=== PATIENT | male | born 1940 | race African-American/Black ===

== ENCOUNTER 2016-06-03 21:21 | Inpatient (IN) | payer OTHER ==
[~2016-06-03] VITALS: Ht 175.3 cm; Wt 101.3 kg
[~2016-06-03 21:21] MED LIST: COZAAR50 MG PO; DECADRON4 MG PO; HYDROCODON-ACE1 EAC7 PO; JANUMET XR 1001 EACH PO; LEVEMIR FL100 UNIT/1 SC; MULTIPLE VITAM1 EACH PO; NORVASC10 MG PO
[2016-06-03 23:13] LABS: BASOPHIL COUNT 0.1 K/uL (0-0.1); EOSINOPHIL (%) 0.9 % (0-5); EOSINOPHIL COUNT 0.1 K/uL (0-0.3); HEMATOCRIT 32.2 % (38.0-50.0); IMMATURE GRANULOCYTE (%) 1.8 % (0.0-0.7); IMMATURE GRANULOCYTE COUNT 1.7 K/uL; LYMPHOCYTE COUNT 2.7 K/uL (1.0-2.8); MCH 26.8 PG (29.0-34.0); MCHC 32.9 G/DL (30.0-36.0); MCV 81.3 FL (86-99); MEAN PLAT.VOLUME 9.7 uM^3 (9.0-12.4); MONOCYTE (%) 10.8 % (3-12); NEUTROPHIL (%) 57.1 % (45-76); NEUTROPHIL COUNT 5.2 K/uL (1.8-6.4); RBC DIS.WIDTH-SD 43.1 % (39-53); RED BLOOD COUNT 3.96 M/uL (4.00-5.50); WHITE BLOOD COUNT 9.2 K/uL (4.1-10.2)
[2016-06-03 23:15] LABS: PLATELET COUNT 361 K/uL (156-360)
[2016-06-03 23:23] LABS: CHLORIDE 106 mEq/L (99-109); POTASSIUM 4.2 mEq/L (3.7-5.4); SODIUM 140 mEq/L (136-147)
[2016-06-03 23:26] LABS: GLUCOSE 221 mg/dL (70-99)
[2016-06-03 23:27] LABS: ANION GAP 10 MEQ/L (2-14)
[2016-06-03 23:28] LABS: TOTAL BILIRUBIN 0.3 mg/dL (0.0-1.0)
[2016-06-03 23:29] LABS: ALKALINE PHOSPHATASE 72 IU/L (3-129); GFR ESTIMATE (CALCULATED) 55 mL/min/
[2016-06-03 23:31] LABS: UREA NITROGEN (BUN) 17 mg/dL (9-23)
[2016-06-04 08:23] VITALS: BP 153/70
[2016-06-04 11:30] VITALS: BP 127/66
[2016-06-04 11:39] LABS: POINT-OF-CARE METER ID UU14149397
[2016-06-04 12:28] LABS: Estimated Average Glucose 235 mg/dL (70-123); HEMOGLOBIN A1c (GLYCOHEMOGLOB) 9.8 % HGB (Below 5.7)
[2016-06-04 16:45] LABS: POINT-OF-CARE METER ID UU14149397
[2016-06-04 19:56] VITALS: BP 168/84
[2016-06-04 19:57] VITALS: BP 168/84
[2016-06-04 22:22] LABS: POINT-OF-CARE METER ID UU13113717
[2016-06-04 23:56] VITALS: BP 145/64
[2016-06-05 03:36] VITALS: BP 135/64
[2016-06-05 06:38] LABS: EOSINOPHIL (%) 0 % (0-5); HEMATOCRIT 32.1 % (38.0-50.0); IMMATURE GRANULOCYTE (%) 0.8 % (0.0-0.7); IMMATURE GRANULOCYTE COUNT 0.1 K/uL; LYMPHOCYTE COUNT 1.2 K/uL (1.0-2.8); MCH 26.1 PG (29.0-34.0); MCV 79.1 FL (86-99); MEAN PLAT.VOLUME 9.6 uM^3 (9.0-12.4); MONOCYTE (%) 4.1 % (3-12); MONOCYTE COUNT 0.5 K/uL (0-0.8); NEUTROPHIL (%) 85.9 % (45-76); PLATELET COUNT 351 K/uL (156-360); RBC DIS.WIDTH-CV 14.5 % (11.8-14.6); RBC DIS.WIDTH-SD 41.5 % (39-53); RED BLOOD COUNT 4.06 M/uL (4.00-5.50)
[2016-06-05 06:44] LABS: WHITE BLOOD COUNT 12.8 K/uL (4.1-10.2)
[2016-06-05 06:48] LABS: ALKALINE PHOSPHATASE 65 IU/L (3-129); ANION GAP 9 MEQ/L (2-14); CHLORIDE 103 MEQ/L (99-109); GFR ESTIMATE (CALCULATED) > 59 mL/min/; GLUCOSE 238 mg/dL (70-99); POTASSIUM 4.1 MEQ/L (3.7-5.4); SAMPLE HEMOLYSIS CHECK 0; SAMPLE ICTERIC CHECK 0; SAMPLE LIPEMIA CHECK 0; SODIUM 137 MEQ/L (136-147); TOTAL BILIRUBIN 0.3 MG/DL (0.0-1.0); UREA NITROGEN (BUN) 21 mg/dL (9-23)
[2016-06-05 06:49] LABS: ANION GAP 8 MEQ/L (2-14); CHLORIDE 104 MEQ/L (99-109); GFR ESTIMATE (CALCULATED) > 59 mL/min/; GLUCOSE 238 mg/dL (70-99); POTASSIUM 4.2 MEQ/L (3.7-5.4); SAMPLE HEMOLYSIS CHECK 0; SAMPLE ICTERIC CHECK 0; SAMPLE LIPEMIA CHECK 0; SODIUM 138 MEQ/L (136-147); UREA NITROGEN (BUN) 21 mg/dL (9-23)
[2016-06-05 07:12] LABS: POINT-OF-CARE METER ID UU13113717
[2016-06-05 08:04] VITALS: BP 175/85
[2016-06-05] MEDS ORDERED: ZOFRAN4 MG PO (10:53)
[2016-06-05] MEDS ORDERED: COMPAZINE10 MG PO (10:53)
[2016-06-05 11:37] VITALS: BP 160/82
[2016-06-05 12:01] LABS: POINT-OF-CARE METER ID UU14149397
== END 2016-06-05 12:40 | disposition home or self-care (01) | DRG 55 ==
LOC: EME 21:21 → 3EAST 06-04 03:00 → EDOF 06-04 03:00 → 3EAST 06-04 08:24
PROVIDERS: Emergency Medicine; Family Medicine; Hospitalist; Internal Medicine
DX: C71.3 Malignant neoplasm of parietal lobe (principal); N17.9 Acute kidney failure, unspecified; E11.9 Type 2 diabetes mellitus without complications; I10 Essential (primary) hypertension; E78.5 Hyperlipidemia, unspecified; D50.9 Iron deficiency anemia, unspecified; R60.0 Localized edema; Z79.4 Long term (current) use of insulin
CPT/HCPCS: 70450; 71010; 77300; 77301; 77338; 80048; 80053; 81003; 82948; 83036; 85025; 85027; 99281; 99285; G0008; J1100; J1815; J1953; J7050

== ENCOUNTER 2016-07-07 13:32 | Inpatient (IN) | payer OTHER ==
[2016-07-07] VITALS (9 sets, daily range): BP systolic 140–178; BP diastolic 64–91
[~2016-07-07] VITALS: Ht 177.8 cm; Wt 102.4 kg
[~2016-07-07 13:32] MED LIST changes: +COMPAZINE10 MG PO; +ZOFRAN4 MG PO
[2016-07-07 14:46] LABS: HEMATOCRIT 36.5 % (38.0-50.0); MCH 26.5 PG (29.0-34.0); MCHC 32.3 G/DL (30.0-36.0); MEAN PLAT.VOLUME 9.3 uM^3 (9.0-12.4); PLATELET COUNT 269 K/uL (156-360); RBC DIS.WIDTH-CV 16.9 % (11.8-14.6); RBC DIS.WIDTH-SD 49.5 % (39-53); RED BLOOD COUNT 4.45 M/uL (4.00-5.50); WHITE BLOOD COUNT 8.4 K/uL (4.1-10.2)
[2016-07-07 14:56] LABS: CHLORIDE 105 mEq/L (99-109); SODIUM 139 mEq/L (136-147)
[2016-07-07 14:58] LABS: GLUCOSE 96 mg/dL (70-99); POTASSIUM 3.7 mEq/L (3.7-5.4)
[2016-07-07 14:59] LABS: ANION GAP 8 MEQ/L (2-14)
[2016-07-07 15:00] LABS: TOTAL BILIRUBIN 0.6 mg/dL (0.0-1.0)
[2016-07-07 15:01] LABS: PROTHROMBIN TIME 10.6 (9.2-11.2); PTT 26.8 (25-32); SERUM ETHYL ALCOHOL < 10 mg/dL
[2016-07-07 15:02] LABS: ALKALINE PHOSPHATASE 59 IU/L (3-129); GFR ESTIMATE (CALCULATED) > 59 mL/min/
[2016-07-07 15:03] LABS: UREA NITROGEN (BUN) 17 mg/dL (9-23)
[2016-07-07 15:04] LABS: DIRECT BILIRUBIN 0.2 mg/dL (0.0-0.3)
[2016-07-07 15:07] LABS: TROP-I INTERPRETATION NEGATIVE; TROPONIN-I 0.15 ng/mL (0.0-0.30)
[2016-07-07 16:35] LABS: ADD MIUA? YES; BILIRUBIN NEGATIVE; BLOOD MODERATE; COLOR YELLOW ((YELLOW)); GLUCOSE (STRIP) NEGATIVE; KETONES NEGATIVE; LEUKOCYTES NEGATIVE; NITRITE NEGATIVE; PH, URINE 8.5 (5-8); PROTEIN (STRIP) 100; SPECIFIC GRAVITY 1.014 (1.000-1.030); UROBILINOGEN 0.2 MG/DL (0.2-1.0)
[2016-07-07] MEDS ORDERED: JANUMET XR 50-1 EACH PO (16:42)
[2016-07-07] MEDS ORDERED: LIPITOR40 MG PO (16:43)
[2016-07-07] MEDS ORDERED: GLIMEPIRIDE1 MG PO (16:43)
[2016-07-07] MEDS ORDERED: [UNRECOGNIZED DRUG - OTHER] PO (16:47)
[2016-07-07 16:53] LABS: BACTERIA NONE SEEN /HPF; EPITHELIAL CELLS RARE /HPF; HYALINE CASTS 0-5 /LPF; MUCUS NONE SEEN /LPF; RED BLOOD CELLS 0-5 /HPF (0-5); UCUL ADDED? NO; WHITE BLOOD CELLS 0-5 /HPF (0-5)
[2016-07-07 17:07] LABS: AMPHETAMINE NEGATIVE (500 ng/mL); BARBITURATES NEGATIVE (200 ng/mL); BENZODIAZEPINES PRESUMPTIVE POSITIVE (150 ng/mL); COCAINE NEGATIVE (150 ng/mL); METHADONE NEGATIVE (200 ng/mL); METHAMPHETAMINE NEGATIVE (500 ng/mL); OPIATES (MORPHINE) NEGATIVE (100 ng/mL); OXYCODONE NEGATIVE (100 ng/mL); PHENCYCLIDINE NEGATIVE (25 ng/mL); THC CANNABINOIDS PRESUMPTIVE POSITIVE (50 ng/mL); TRICYCLIC ANTIDEPRESSANTS NEGATIVE (300 ng/mL)
[2016-07-07 17:08] LABS: ADD MEDTOX COMMENT Y; INTERNAL CONTROLS VALID? YES; PROPOXYPHENE NEGATIVE (300 ng/mL)
[2016-07-07 18:41] LABS: BENZODIAZEPINES QUANT VALUE 0 NG/ML
[2016-07-07 18:44] LABS: BENZODIAZEPINES, URINE SCREEN Negative (200 ng/mL)
[2016-07-07 21:03] LABS: POINT-OF-CARE METER ID UU13113698
[2016-07-08 04:27] VITALS: BP 141/65
[2016-07-08 06:54] LABS: HEMATOCRIT 32.6 % (38.0-50.0); MCH 26.1 PG (29.0-34.0); MCHC 32.2 G/DL (30.0-36.0); MCV 81.1 FL (86-99); MEAN PLAT.VOLUME 9.9 uM^3 (9.0-12.4); PLATELET COUNT 246 K/uL (156-360); RBC DIS.WIDTH-CV 16.4 % (11.8-14.6); RBC DIS.WIDTH-SD 48.7 % (39-53); RED BLOOD COUNT 4.02 M/uL (4.00-5.50); WHITE BLOOD COUNT 6.4 K/uL (4.1-10.2)
[2016-07-08 07:13] VITALS: BP 177/82
[2016-07-08 07:19] LABS: ANION GAP 10 MEQ/L (2-14); CHLORIDE 106 MEQ/L (99-109); GFR ESTIMATE (CALCULATED) > 59 mL/min/; GLUCOSE 140 mg/dL (70-99); SAMPLE HEMOLYSIS CHECK 0; SAMPLE ICTERIC CHECK 0; SAMPLE LIPEMIA CHECK 0; SODIUM 139 MEQ/L (136-147); UREA NITROGEN (BUN) 15 mg/dL (9-23)
[2016-07-08 07:22] LABS: POINT-OF-CARE METER ID UU13113781; POINT-OF-CARE USER ID ENVKC36
[2016-07-08 07:22] LABS: POTASSIUM 4.5 MEQ/L (3.7-5.4)
[2016-07-08 12:10] VITALS: BP 167/82
[2016-07-08 12:31] LABS: POINT-OF-CARE METER ID UU13113781; POINT-OF-CARE USER ID ENVKC36
[2016-07-08 15:16] VITALS: BP 163/71
[2016-07-08 16:57] LABS: POINT-OF-CARE METER ID UU13113781
[2016-07-08 19:40] VITALS: BP 133/69
[2016-07-08 23:35] VITALS: BP 117/57
[2016-07-09] VITALS (7 sets, daily range): BP systolic 130–170; BP diastolic 62–81
[2016-07-09 07:33] LABS: HEMATOCRIT 31.3 % (38.0-50.0); MCH 26.4 PG (29.0-34.0); MCHC 32.6 G/DL (30.0-36.0); MCV 81.1 FL (86-99); MEAN PLAT.VOLUME 9.9 uM^3 (9.0-12.4); PLATELET COUNT 240 K/uL (156-360); RBC DIS.WIDTH-CV 16.4 % (11.8-14.6); RBC DIS.WIDTH-SD 48.1 % (39-53); RED BLOOD COUNT 3.86 M/uL (4.00-5.50); WHITE BLOOD COUNT 6.9 K/uL (4.1-10.2)
[2016-07-09 07:35] LABS: POINT-OF-CARE METER ID UU13113698
[2016-07-09 07:48] LABS: EOSINOPHIL (%) 0 % (0-5); IMMATURE GRANULOCYTE (%) 0.7 % (0.0-0.7); IMMATURE GRANULOCYTE COUNT 0.1 K/uL; MONOCYTE (%) 4.5 % (3-12); MONOCYTE COUNT 0.3 K/uL (0-0.8); NEUTROPHIL (%) 80.8 % (45-76); NEUTROPHIL COUNT 5.6 K/uL (1.8-6.4)
[2016-07-09 07:58] LABS: POINT-OF-CARE METER ID UU14174216; POINT-OF-CARE USER ID NUTSLF44
[2016-07-09 08:15] LABS: ANION GAP 8 MEQ/L (2-14); CHLORIDE 110 MEQ/L (99-109); GFR ESTIMATE (CALCULATED) > 59 mL/min/; GLUCOSE 181 mg/dL (70-99); POTASSIUM 4.3 MEQ/L (3.7-5.4); SAMPLE HEMOLYSIS CHECK 0; SAMPLE ICTERIC CHECK 0; SAMPLE LIPEMIA CHECK 0; SODIUM 140 MEQ/L (136-147)
[2016-07-09 08:16] LABS: UREA NITROGEN (BUN) 24 mg/dL (9-23)
[2016-07-09 11:22] LABS: POINT-OF-CARE METER ID UU14174216; POINT-OF-CARE USER ID NUTSLF44
[2016-07-09 17:29] LABS: POINT-OF-CARE METER ID UU14174216
[2016-07-10 05:43] LABS: HEMATOCRIT 33.4 % (38.0-50.0); MCHC 31.7 G/DL (30.0-36.0); MCV 81.9 FL (86-99); MEAN PLAT.VOLUME 10.2 uM^3 (9.0-12.4); PLATELET COUNT 266 K/uL (156-360); RBC DIS.WIDTH-CV 16.3 % (11.8-14.6); RBC DIS.WIDTH-SD 48.8 % (39-53); RED BLOOD COUNT 4.08 M/uL (4.00-5.50); WHITE BLOOD COUNT 7.3 K/uL (4.1-10.2)
[2016-07-10 07:50] LABS: ALKALINE PHOSPHATASE 42 IU/L (3-129); ANION GAP 7 MEQ/L (2-14); CHLORIDE 107 MEQ/L (99-109); GFR ESTIMATE (CALCULATED) > 59 mL/min/; GLUCOSE 249 mg/dL (70-99); POTASSIUM 4.5 MEQ/L (3.7-5.4); SAMPLE HEMOLYSIS CHECK 0; SAMPLE ICTERIC CHECK 0; SAMPLE LIPEMIA CHECK 0; SODIUM 139 MEQ/L (136-147); TOTAL BILIRUBIN 0.5 MG/DL (0.0-1.0); UREA NITROGEN (BUN) 22 mg/dL (9-23)
[2016-07-10 08:06] LABS: FERRITIN 79 NG/ML (22-322)
[2016-07-10 08:08] VITALS: BP 208/96
[2016-07-10 11:01] LABS: POINT-OF-CARE METER ID UU13113725
[2016-07-10 11:30] VITALS: BP 176/82
[2016-07-10] MEDS ORDERED: LEVETIRACETAM500 MG PO (16:09)
[2016-07-10 16:21] VITALS: BP 191/82
== END 2016-07-10 17:03 | disposition home or self-care (01) | DRG 54 ==
LOC: EME 13:32 → EDOF 17:01 → 4EAST 17:01 → 5EAST 07-09 21:56
PROVIDERS: Emergency Medicine; Hospitalist; Internal Medicine; Nurse Practitioner Family
DX: C71.3 Malignant neoplasm of parietal lobe (principal); G93.40 Encephalopathy, unspecified; G93.6 Cerebral edema; N17.9 Acute kidney failure, unspecified; F05 Delirium due to known physiological condition; E11.22 Type 2 diabetes mellitus with diabetic chronic kidney disease; N18.2 Chronic kidney disease, stage 2 (mild); I12.9 Hypertensive chronic kidney disease with stage 1 through stage 4 chronic kidney disease, or unspecified chronic kidney disease; D50.8 Other iron deficiency anemias; R13.10 Dysphagia, unspecified; R56.9 Unspecified convulsions; E78.5 Hyperlipidemia, unspecified; E78.00 Pure hypercholesterolemia, unspecified; E11.59 Type 2 diabetes mellitus with other circulatory complications; E66.9 Obesity, unspecified; Z68.32 Body mass index [BMI] 32.0-32.9, adult; Z87.891 Personal history of nicotine dependence; Z79.4 Long term (current) use of insulin; Z83.3 Family history of diabetes mellitus; Z82.49 Family history of ischemic heart disease and other diseases of the circulatory system
CPT/HCPCS: 70450; 71010; 77336; 77385; 80048; 80053; 80076; 81003; 82140; 82728; 82948; 83605; 84466; 84484; 84999; 85025; 85027; 85610; 85730; 87040; 93005; 95819; 99281; 99284; G0480; J0692; J1100; J1650; J1815; J7030; J7050; S0028